=== PATIENT | female | born 1955 | race Caucasian/White ===

== ENCOUNTER → 2023-10-02 | Outpatient (CLI) | payer MEDICARE, SELFPAY ==
--- NOTE | 2023-10-02 14:10 | BI_ITS ---
MAMMOGRAPHY - BILATERAL SCREENING 3-D TOMOSYNTHESIS REASON FOR EXAM: Female, 68 years old. SCREENING PERTINENT HISTORY: No significant family history. TECHNIQUE: 2-D mammograms and 3-D Tomosynthesis of the breast (s) were performed. CAD was performed. COMPARISON: 02/11/2013 FINDINGS: The breast composition is heterogeneously dense that can obscure small breast masses. Scattered benign calcifications are seen. No dense spiculated masses or suspicious microcalcifications are identified. No architectural distortion is identified. There is no skin thickening or retraction. There has been no significant change since the prior study. BI/SCRN MAMM (CAD)W/PEYTON BILAT IMPRESSION: No mammographic signs of malignancy. Routine yearly mammograms recommended. ASSESSMENT CATEGORY: BIRADS Category 1: Negative. A letter regarding these results will be sent to the patient by the facility within 30 days. FOLLOW UP RECOMMENDATION: Yearly follow up mammogram recommended. (A) Approximately 10% of breast cancers are not detected by mammography. A normal mammogram should not delay biopsy of a clinically suspicious abnormality. Electronically Signed: Grayson Rothman MD at 18:28 EST ,
--- NOTE | 2023-10-02 14:12 | BD_ITS ---
STUDY: DUAL ENERGY X-RAY ABSORPTIOMETRY / DXA REASON FOR EXAM: Female, 68 years old. M81.0 TECHNIQUE: Bone Mineral Density (BMD) measurements of lumbar spine and bilateral hips were obtained. COMPARISON: Comparison is made with prior study dated February 11, 2013. FINDINGS: Lumbar Spine (L1-L4): g/cm2 (0.798) / T-score (-2.0) / Z-score (-0.2) Findings are suggestive of osteopenia with a moderate fracture risk. Left Femur Total: g/cm2 (0.891) / T-score (-0.4) / Z-score (0.9) Left Femoral Neck: g/cm2 (0.786) / T-score (-0.6) / Z-score (1.0) Right Femur Total: g/cm2 (0.896) / T-score (-0.4) / Z-score (0.9) Right Femoral Neck: g/cm2 (0.814) / T-score (-0.3) / Z-score (1.2) The T-Scores on the most recent prior examination were: Lumbar Spine (L1-L4): There has been worsening of bone density since the previous examination. Left Femur Total: which represents a worsening of 14.2%. Right Femur Total: which represents a worsening of 14.8%. BD/Dexa Bone Density Study IMPRESSION: The patient is considered osteopenic as outlined below according to World [place] Organization (WHO) criteria with a moderate fracture risk. There has been worsening of bone density since the previous examination. Reference Information: The T-score is the number of standard deviations above or below the standard which is normal for young adults at their peak bone mineral density. The World Health Organization (WHO) interprets the T-scores as follows: Above -1 Normal bone density Between -1 and -2.5 Osteopenia Equal to / or below -2.5 Osteoporosis As a practical clinical guideline, osteopenia may be graded as follows: Mild -1 through -1.5 Moderate -1.6 through -2.0 Severe -2.1 through -2.4 The Z-score is the number of standard deviations above or below age-matched controls. A Z-score of less than -1.5 would be considered abnormal. References: 1. NIH Osteoporosis and Related Bone Diseases www osteo.org 2. International Society for Clinical Densitometry www iscd.org 3. National Osteoporosis Foundation www nof.org Electronically Signed: Valerio Avila MD at 15:03 EDT ,
--- OUTSIDE RECORDS SUMMARY | 2023-10-02 19:11 | XMS RPT_ITS | CCD ---
Author Name Unknown Address [id number] [place] [address] Organization [facility] Care Team Providers Care Mill Control Operator Name Role Phone Nisha Pathak Unavailable Cristal Deleon Unavailable Unavailable Unavailable Unavailable Nisha Pathak Unavailable Leia Morales Unavailable Unavailable Unavailable Unavailable Maya Fisher Unavailable Unavailable Nisha Pathak DO Unavailable Maya Fihser LPN Unavailable Unavailable Unavailable Unavailable Leia Morales LPN Unavailable Unavailable Cicoreya CASE REPAIRER, Flor Unavailable Nisha Pathak DO Unavailable Gravius STUDY LEAD, Sarah Unavailable Unavailable Unavailable Unavailable Nisha Pathak DO Attending Unavailable Nisha Pathak DO Referring Unavailable Nisha Pathak DO Consulting Unavailable Marquesavinash HAYNES Missael Unavailable Unavailable Medications Completed/Discontinued Medications Medication Drug Class(es) Dates Sig (Normalized) Sig (Original) acyclovir 400 mg oral tablet (20 sources) Herpesvirus Nucleoside Analog DNA Polymerase Inhibitor, Herpes Simplex Virus Nucleoside Analog DNA Polymerase Inhibitor, Herpes Zoster Virus Nucleoside Analog DNA Polymerase Inhibitor Start: 08-14-2022 take 1 tablet by mouth once daily acyclovir 400 mg oral tablet 1 (one) Tablet qd for 0 days Quantity: 90 {Tablet} Refills: 3 Ordered: 14-Aug-2022 Nisha Pathak DO, DO, Kathleen Start : 14-Aug-2022 Active Problems Active Problems Problem Classification Problem Date Documented Da te Episodic/Chronic Diabetes mellitus without complication (20 sources) Hyperglycemia; Translations: [Hyperglycemia] 04-14-2021 Episodic Essential hypertension (20 sources) Hypertensive disorder; Translations: [Hypertension] 05-07-2018 Chronic Other nutritional; endocrine; and metabolic disorders (8 sources) Body mass index 25-29 - overweight; Translations: [BMI 28.0-28.9,adult] 03-28-2018 Chronic Other nutritional; endocrine; and metabolic disorders (20 sources) Body mass index 25-29 - overweight; Translations: [BMI 26.0-26.9,adult] 11-09-2020 Episodic Other nutritional; endocrine; and metabolic disorders (20 sources) Overweight in adulthood with body mass index of 25 or more but less than 30; Translations: [BMI 26.0-26.9,adult] 10-18-2021 Episodic Other screening for suspected conditions (not mental disorders or infectious disease) (20 sources) Patient encounter status; Translations: [Encounter for screening mammogram for breast cancer (Renamed from Encounter for screening mammogram for malignant neoplasm of breast)] 11-09-2020 Episodic Past or Other Problems Problem Classification Problem Date Documented Da te Episodic/Chronic Unclassified (18 sources) Encounter for screening mammogram for breast cancer (Renamed from Encounter for screening mammogram for malignant neoplasm of breast); Translations: [Patient encounter status] 03-28-2018 Unclassified (20 sources) Pregnancies (); Translations: [Pregnancies ()] 03-28-2018 Results Test Name Value Interpretation Reference Range Facil ity Vital Signs Date Time Vital Sign Value Performing Clinician Facility 01-31-2023 07:13-0400 Body height 163.83 cm [facility] Work Phone: 01-31-2023 07:13-0400 Body mass index (BMI) [Ratio] 27.23 kg/m2 [facility] Work Phone: 01-31-2023 07:13-0400 Body surface area Derived from formula 1.79 m2 [facility] Work Phone: 01-31-2023 07:13-0400 Body temperature 97.3 [degF] [facility]; [facility] Work Phone: 01-31-2023 07:130400 Body weight 73.09 kg Missael Mohan [facility] Work Phone: 01-31-2023 [id number]:[id number] Diastolic blood pressure 60 mm[Hg] Missael Mohan [facility] Work Phone: Encounters Encounter Date Encounter Type Care Provider Facility Start: 01-31-2023 End: 01-31-2023 Patient encounter procedure Nisha Zo DO Work Phone: [facility] Start: 10-17-2022 End: 10-17-2022 Office outpatient visit 10 minutes Nisha Zo DO Work Phone: [facility] Start: 10-17-2022 ambulatory Nisha Zo DO [facility] Start: 10-19-2021 End: 10-19-2021 Office outpatient visit 10 minutes Nisha Zo DO Work Phone: [facility] Start: 10-16-2021 End: 10-16-2021 Office outpatient visit 10 minutes Nisha Zo DO Work Phone: [facility] Start: 04-25-2021 End: 04-25-2021 Office outpatient visit 10 minutes Nisha Zo DO Work Phone: [facility] Start: 11-09-2020 End: 11-11-2020 Office outpatient visit 15 minutes Nisha Zo DO Work Phone: [facility] Start: 11-09-2020 Review Nisha Zo [facility] Start: 05-11-2020 End: 05-11-2020 Office outpatient visit 15 minutes Nisha Zo [facility] Start: 11-05-2019 End: 11-05-2019 Office outpatient visit 15 minutes Nisha Zo [facility] Start: 10-01-2018 End: 10-01-2018 Office outpatient visit 15 minutes Nisha Zo [facility] Start: 08-22-2018 End: 08-22-2018 Phone Encounter Nisha Zo [facility] Start: 05-07-2018 End: 05-07-2018 Phone Encounter Nisha Pathak [facility] Start: 03-28-2018 End: 03-28-2018 Office outpatient visit 25 minutes Nisha Pathak [facility] Procedures Date Procedure Procedure Detail Performing Clinician Start: 03-28-2018 End: 03-28-2018 No Known Past Surgical History [facility] Ophthalmic examinati on and evaluation Cristal Messenger Plan of Treatment Date Care Activity Detail Author Start: 01-31-2023 Procedure Education Eprescribed prescriptions (G8553) [facility] Work Phone: Start: 01-31-2023 Provider Instructions for Treatment [facility] Work Phone: Start: 01-31-2023 Hemoglobin glycosylated a1c HGB A1C (34810) [facility]; [facility] Work Phone: Start: 01-31-2023 Urnls dip stick/tablet reagent auto microscopy URINALYSIS, W/ MICRO (23208) [facility]; [facility] Work Phone: Start: 01-31-2023 Urine albumin quantitative MICROALBUMIN: CREATININE RATIO (28173) AND (11581) [facility]; [facility] Work Phone: Start: 01-31-2023 Comprehensive metabolic panel METABOLIC PANEL, COMPREHENSIVE (35446) [facility]; [facility] Work Phone: Start: 01-31-2023 Lipid panel LIPID PANEL (26907) [facility] Work Phone: Start: 01-31-2023 Blood count manual cell count each CBC with auto diff (31492) [facility]; [facility] Work Phone: Start: 10-17-2022 Procedure Education Eprescribed prescriptions (G8553) [facility]; [facility] Work Phone: Start: 10-19-2021 Procedure Education Eprescribed prescriptions (G8553) [facility] Work Phone: Start: 10-16-2021 Procedure Education Eprescribed prescriptions (G8553) [facility]; [facility] Work Phone: Start: 04-25-2021 Procedure Education Eprescribed prescriptions (G8553) [facility]; [facility] Work Phone: Start: 11-09-2020 Procedure Education Eprescribed prescriptions (G8553) [facility]; [facility] Work Phone: Start: 11-09-2020 Provider Instructions for Treatment [facility] Work Phone: Start: 11-09-2020 Hemoglobin glycosylated a1c HGB A1C (63580) [facility]; [facility] Work Phone: Start: 05-11-2020 Urnls dip stick/tablet reagent auto microscopy URINALYSIS, W/ MICRO (52312) [facility] Work Phone: Start: 05-11-2020 Urine albumin quantitative MICROALBUMIN: CREATININE RATIO (68643) AND (48751) [facility] Work Phone: Start: 05-11-2020 Comprehensive metabolic panel METABOLIC PANEL, COMPREHENSIVE (55412) [facility] Work Phone: Start: 05-11-2020 Lipid panel LIPID PANEL (03825) [facility] Work Phone: Start: 05-11-2020 Blood count complete auto&auto difrntl wbc CBC W/AUTO DIFF WBC (70644) [facility] Work Phone: Start: 05-11-2020 Procedure Education Eprescribed prescriptions (G8553) [facility] Work Phone: Start: 05-11-2020 Provider Instructions for Treatment [facility] Work Phone: Start: 11-05-2019 Procedure Education Eprescribed prescriptions (G8553) [facility] Work Phone: Start: 11-05-2019 Provider Instructions for Treatment [facility] Work Phone: Start: 10-01-2018 Provider Instructions for Treatment [facility] Work Phone: Start: 10-01-2018 Protein mass conc NMR Profile (57365) [facility] Work Phone: Start: 10-01-2018 Urnls dip stick/tablet reagent auto microscopy URINALYSIS, W/ MICRO (89202) [facility] Work Phone: Start: 10-01-2018 Urine albumin quantitative MICROALBUMIN: CREATININE RATIO (08122) AND (12279) [facility] Work Phone: Start: 10-01-2018 Comprehensive metabolic panel METABOLIC PANEL, COMPREHENSIVE (18026) [facility] Work Phone: Start: 10-01-2018 Blood count complete auto&auto difrntl wbc CBC W/AUTO DIFF WBC (62665) [facility] Work Phone: Start: 03-28-2018 Provider Instructions for Treatment [facility] Work Phone: [facility] Work Phone: [facility] Work Phone: [facility] Work Phone: [facility] Work Phone: [facility] Work Phone: Immunizations Immunization Date Immunization Notes Care Provider Piedad jenkins 07-29-2019 influenza, seasonal, injectable Nisha Pathak [facility] Work Phone: 07-29-2012 zoster vaccine, live Nisha Pathak [facility] Work Phone: Payers Date Payer Category Payer Unknown [id number] 2018 Unknown [id number] 1955 Unknown [id number] Unknown Social History Date Type Detail Facility Caffeine Use [facility] Work Phone: Functional Status Date Assessment Result Facility 10-01-2018 LP-IR Score LP-IR Score <25 [facility] Work Phone: Clinical Notes Note Date & Type Note Facility [facility] Work Phone: [phone]* Name Dates Details How to Access Health Informa tion Online using Patient Portal and 3rd Libertarian Apps Indication:Non-smoker Start:09-Nov-2020 Instruction Type:Patient Education Patient Instructions Indication:Non-smoker Start:09-Nov-2020 Instruction Type:Provider Instructions for Treatment How to access health informa tion online Indication:BMI 26.0-26.9,adult Start:11-May-2020 Instruction Type:Patient Education How to access health informa tion online - Detail Indication:BMI 26.0-26.9,adult Start:11-May-2020 Instruction Type:Patient Education Patient Instructions Indication:BMI 26.0-26.9,adult Start:11-May-2020 Instruction Type:Provider Instructions for Treatment How to access health informa tion online - Detail Indication:Non-smoker Start:05-Nov-2019 Instruction Type:Patient Education How to access health informa tion online Indication:Non-smoker Start:05-Nov-2019 Instruction Type:Patient Education Patient Instructions Indication:Non-smoker Start:05-Nov-2019 Instruction Type:Provider Instructions for Treatment How to access health informa tion online Indication:BMI 26.0-26.9,adult Start:01-Oct-2018 Instruction Type:Patient Education Patient Instructions Indication:BMI 26.0-26.9,adult Start:01-Oct-2018 Instruction Type:Provider Instructions for Treatment How to access health informa tion online Indication:Non-smoker Start:28-Mar-2018 Instruction Type:Patient Education How to access health informa tion online - Detail Indication:Non-smoker Start:28-Mar-2018 Instruction Type:Patient Education Patient Instructions Indication:Non-smoker Start:28-Mar-2018 Instruction Type:Provider Instructions for Treatment [facility]; [facility] Work Phone: Instructions* Name Dates Details Patient Instructions Indication:BMI 28.0-28.9,adult Start:25-Apr-2021 Instruction Type:Provider Instructions for Treatment How to Access Health Informa tion Online using Patient Portal and 3rd Libertarian Apps Indication:BMI 28.0-28.9,adult Start:25-Apr-2021 Instruction Type:Patient Education How to Access Health Informa tion Online using Patient Portal and 3rd Libertarian Apps Indication:Non-smoker Start:09-Nov-2020 Instruction Type:Patient Education Patient Instructions Indication:Non-smoker Start:09-Nov-2020 Instruction Type:Provider Instructions for Treatment How to access health informa tion online Indication:BMI 26.0-26.9,adult Start:11-May-2020 Instruction Type:Patient Education How to access health informa tion online - Detail Indication:BMI 26.0-26.9,adult Start:11-May-2020 Instruction Type:Patient Education Patient Instructions Indication:BMI 26.0-26.9,adult Start:11-May-2020 Instruction Type:Provider Instructions for Treatment How to access health informa tion online - Detail Indication:Non-smoker Start:05-Nov-2019 Instruction Type:Patient Education How to access health informa tion online Indication:Non-smoker Start:05-Nov-2019 Instruction Type:Patient Education Patient Instructions Indication:Non-smoker Start:05-Nov-2019 Instruction Type:Provider Instructions for Treatment How to access health informa tion online Indication:BMI 26.0-26.9,adult Start:01-Oct-2018 Instruction Type:Patient Education Patient Instructions Indication:BMI 26.0-26.9,adult Start:01-Oct-2018 Instruction Type:Provider Instructions for Treatment How to access health informa tion online Indication:Non-smoker Start:28-Mar-2018 Instruction Type:Patient Education How to access health informa tion online - Detail Indication:Non-smoker Start:28-Mar-2018 Instruction Type:Patient Education Patient Instructions Indication:Non-smoker Start:28-Mar-2018 Instruction Type:Provider Instructions for Treatment [facility] Work Phone: Instructions* Name Dates Details Patient Instructions Indication:BMI 28.0-28.9,adult Start:25-Apr-2021 Instruction Type:Provider Instructions for Treatment How to Access Health Informa tion Online using Patient Portal and 3rd Libertarian Apps Indication:BMI 28.0-28.9,adult Start:25-Apr-2021 Instruction Type:Patient Education How to Access Health Informa tion Online using Patient Portal and 3rd Libertarian Apps Indication:Non-smoker Start:09-Nov-2020 Instruction Type:Patient Education Patient Instructions Indication:Non-smoker Start:09-Nov-2020 Instruction Type:Provider Instructions for Treatment How to access health informa tion online Indication:BMI 26.0-26.9,adult Start:11-May-2020 Instruction Type:Patient Education How to access health informa tion online - Detail Indication:BMI 26.0-26.9,adult Start:11-May-2020 Instruction Type:Patient Education Patient Instructions Indication:BMI 26.0-26.9,adult Start:11-May-2020 Instruction Type:Provider Instructions for Treatment How to access health informa tion online - Detail Indication:Non-smoker Start:05-Nov-2019 Instruction Type:Patient Education How to access health informa tion online Indication:Non-smoker Start:05-Nov-2019 Instruction Type:Patient Education Patient Instructions Indication:Non-smoker Start:05-Nov-2019 Instruction Type:Provider Instructions for Treatment How to access health informa tion online Indication:BMI 26.0-26.9,adult Start:01-Oct-2018 Instruction Type:Patient Education Patient Instructions Indication:BMI 26.0-26.9,adult Start:01-Oct-2018 Instruction Type:Provider Instructions for Treatment How to access health informa tion online Indication:Non-smoker Start:28-Mar-2018 Instruction Type:Patient Education How to access health informa tion online - Detail Indication:Non-smoker Start:28-Mar-2018 Instruction Type:Patient Education Patient Instructions Indication:Non-smoker Start:28-Mar-2018 Instruction Type:Provider Instructions for Treatment [facility]; [facility] Work Phone: Instructions* Name Dates Details How to Access Health Informa tion Online using Patient Portal and 3rd Libertarian Apps Indication:Skin lesion Start:19-Oct-2021 Instruction Type:Patient Education Patient Instructions Indication:Skin lesion Start:19-Oct-2021 Instruction Type:Provider Instructions for Treatment Patient Instructions Indication:Non-smoker Start:16-Oct-2021 Instruction Type:Provider Instructions for Treatment How to Access Health Informa tion Online using Patient Portal and [employer] Libertarian Apps Indication:Non-smoker Start:16-Oct-2021 Instruction Type:Patient Education Patient Instructions Indication:BMI 28.0-28.9,adult Start:25-Apr-2021 Instruction Type:Provider Instructions for Treatment How to Access Health Informa tion Online using Patient Portal and 3rd Libertarian Apps Indication:BMI 28.0-28.9,adult Start:25-Apr-2021 Instruction Type:Patient Education How to Access Health Informa tion Online using Patient Portal and 3rd Libertarian Apps Indication:Non-smoker Start:09-Nov-2020 Instruction Type:Patient Education Patient Instructions Indication:Non-smoker Start:09-Nov-2020 Instruction Type:Provider Instructions for Treatment How to access health informa tion online Indication:BMI 26.0-26.9,adult Start:11-May-2020 Instruction Type:Patient Education How to access health informa tion online - Detail Indication:BMI 26.0-26.9,adult Start:11-May-2020 Instruction Type:Patient Education Patient Instructions Indication:BMI 26.0-26.9,adult Start:11-May-2020 Instruction Type:Provider Instructions for Treatment How to access health informa tion online - Detail Indication:Non-smoker Start:05-Nov-2019 Instruction Type:Patient Education How to access health informa tion online Indication:Non-smoker Start:05-Nov-2019 Instruction Type:Patient Education Patient Instructions Indication:Non-smoker Start:05-Nov-2019 Instruction Type:Provider Instructions for Treatment How to access health informa tion online Indication:BMI 26.0-26.9,adult Start:01-Oct-2018 Instruction Type:Patient Education Patient Instructions Indication:BMI 26.0-26.9,adult Start:01-Oct-2018 Instruction Type:Provider Instructions for Treatment How to access health informa tion online Indication:Non-smoker Start:28-Mar-2018 Instruction Type:Patient Education How to access health informa tion online - Detail Indication:Non-smoker Start:28-Mar-2018 Instruction Type:Patient Education Patient Instructions Indication:Non-smoker Start:28-Mar-2018 Instruction Type:Provider Instructions for Treatment [facility] Work Phone: Instructions* Name Dates Details How to Access Health Informa tion Online using Patient Portal and 3rd Libertarian Apps Indication:Skin lesion Start:19-Oct-2021 Instruction Type:Patient Education Patient Instructions Indication:Skin lesion Start:19-Oct-2021 Instruction Type:Provider Instructions for Treatment Patient Instructions Indication:Non-smoker Start:16-Oct-2021 Instruction Type:Provider Instructions for Treatment How to Access Health Informa tion Online using Patient Portal and 3rd Libertarian Apps Indication:Non-smoker Start:16-Oct-2021 Instruction Type:Patient Education Patient Instructions Indication:BMI 28.0-28.9,adult Start:25-Apr-2021 Instruction Type:Provider Instructions for Treatment How to Access Health Informa tion Online using Patient Portal and 3rd Libertarian Apps Indication:BMI 28.0-28.9,adult Start:25-Apr-2021 Instruction Type:Patient Education How to Access Health Informa tion Online using Patient Portal and 3rd Libertarian Apps Indication:Non-smoker Start:09-Nov-2020 Instruction Type:Patient Education Patient Instructions Indication:Non-smoker Start:09-Nov-2020 Instruction Type:Provider Instructions for Treatment How to access health informa tion online Indication:BMI 26.0-26.9,adult Start:11-May-2020 Instruction Type:Patient Education How to access health informa tion online - Detail Indication:BMI 26.0-26.9,adult Start:11-May-2020 Instruction Type:Patient Education Patient Instructions Indication:BMI 26.0-26.9,adult Start:11-May-2020 Instruction Type:Provider Instructions for Treatment How to access health informa tion online - Detail Indication:Non-smoker Start:05-Nov-2019 Instruction Type:Patient Education How to access health informa tion online Indication:Non-smoker Start:05-Nov-2019 Instruction Type:Patient Education Patient Instructions Indication:Non-smoker Start:05-Nov-2019 Instruction Type:Provider Instructions for Treatment How to access health informa tion online Indication:BMI 26.0-26.9,adult Start:01-Oct-2018 Instruction Type:Patient Education Patient Instructions Indication:BMI 26.0-26.9,adult Start:01-Oct-2018 Instruction Type:Provider Instructions for Treatment How to access health informa tion online Indication:Non-smoker Start:28-Mar-2018 Instruction Type:Patient Education How to access health informa tion online - Detail Indication:Non-smoker Start:28-Mar-2018 Instruction Type:Patient Education Patient Instructions Indication:Non-smoker Start:28-Mar-2018 Instruction Type:Provider Instructions for Treatment [facility]; [facility] Work Phone: Instructions* Name Dates Details How to Access Health Informa tion Online using Patient Portal and 3rd Libertarian Apps Indication:Skin lesion Start:19-Oct-2021 Instruction Type:Patient Education Patient Instructions Indication:Skin lesion Start:19-Oct-2021 Instruction Type:Provider Instructions for Treatment Patient Instructions Indication:Non-smoker Start:16-Oct-2021 Instruction Type:Provider Instructions for Treatment How to Access Health Informa tion Online using Patient Portal and 3rd Libertarian Apps Indication:Non-smoker Start:16-Oct-2021 Instruction Type:Patient Education Patient Instructions Indication:BMI 28.0-28.9,adult Start:25-Apr-2021 Instruction Type:Provider Instructions for Treatment How to Access Health Informa tion Online using Patient Portal and 3rd Libertarian Apps Indication:BMI 28.0-28.9,adult Start:25-Apr-2021 Instruction Type:Patient Education How to Access Health Informa tion Online using Patient Portal and 3rd Libertarian Apps Indication:Non-smoker Start:09-Nov-2020 Instruction Type:Patient Education Patient Instructions Indication:Non-smoker Start:09-Nov-2020 Instruction Type:Provider Instructions for Treatment How to access health informa tion online Indication:BMI 26.0-26.9,adult Start:11-May-2020 Instruction Type:Patient Education How to access health informa tion online - Detail Indication:BMI 26.0-26.9,adult Start:11-May-2020 Instruction Type:Patient Education Patient Instructions Indication:BMI 26.0-26.9,adult Start:11-May-2020 Instruction Type:Provider Instructions for Treatment How to access health informa tion online - Detail Indication:Non-smoker Start:05-Nov-2019 Instruction Type:Patient Education How to access health informa tion online Indication:Non-smoker Start:05-Nov-2019 Instruction Type:Patient Education Patient Instructions Indication:Non-smoker Start:05-Nov-2019 Instruction Type:Provider Instructions for Treatment How to access health informa tion online Indication:BMI 26.0-26.9,adult Start:01-Oct-2018 Instruction Type:Patient Education Patient Instructions Indication:BMI 26.0-26.9,adult Start:01-Oct-2018 Instruction Type:Provider Instructions for Treatment How to access health informa tion online Indication:Non-smoker Start:28-Mar-2018 Instruction Type:Patient Education How to access health informa tion online - Detail Indication:Non-smoker Start:28-Mar-2018 Instruction Type:Patient Education Patient Instructions Indication:Non-smoker Start:28-Mar-2018 Instruction Type:Provider Instructions for Treatment [facility]; [facility] Work Phone: Instructions* Name Dates Details How to Access Health Informa tion Online using Patient Portal and [employer]rd [employer] Apps Indication:Skin lesion Start:19-Oct-2021 Instruction Type:Patient Education Patient Instructions Indication:Skin lesion Start:19-Oct-2021 Instruction Type:Provider Instructions for Treatment Patient Instructions Indication:Non-smoker Start:16-Oct-2021 Instruction Type:Provider Instructions for Treatment How to Access Health Informa tion Online using Patient Portal and [employer]rd [employer] Apps Indication:Non-smoker Start:16-Oct-2021 Instruction Type:Patient Education Patient Instructions Indication:BMI 28.0-28.9,adult Start:25-Apr-2021 Instruction Type:Provider Instructions for Treatment How to Access Health Informa tion Online using Patient Portal and [employer]rd [employer] Apps Indication:BMI 28.0-28.9,adult Start:25-Apr-2021 Instruction Type:Patient Education How to Access Health Informa tion Online using Patient Portal and [employer]rd [employer] Apps Indication:Non-smoker Start:09-Nov-2020 Instruction Type:Patient Education Patient Instructions Indication:Non-smoker Start:09-Nov-2020 Instruction Type:Provider Instructions for Treatment How to access health informa tion online Indication:BMI 26.0-26.9,adult Start:11-May-2020 Instruction Type:Patient Education How to access health informa tion online - Detail Indication:BMI 26.0-26.9,adult Start:11-May-2020 Instruction Type:Patient Education Patient Instructions Indication:BMI 26.0-26.9,adult Start:11-May-2020 Instruction Type:Provider Instructions for Treatment How to access health informa tion online - Detail Indication:Non-smoker Start:05-Nov-2019 Instruction Type:Patient Education How to access health informa tion online Indication:Non-smoker Start:05-Nov-2019 Instruction Type:Patient Education Patient Instructions Indication:Non-smoker Start:05-Nov-2019 Instruction Type:Provider Instructions for Treatment How to access health informa tion online Indication:BMI 26.0-26.9,adult Start:01-Oct-2018 Instruction Type:Patient Education Patient Instructions Indication:BMI 26.0-26.9,adult Start:01-Oct-2018 Instruction Type:Provider Instructions for Treatment How to access health informa tion online Indication:Non-smoker Start:28-Mar-2018 Instruction Type:Patient Education How to access health informa tion online - Detail Indication:Non-smoker Start:28-Mar-2018 Instruction Type:Patient Education Patient Instructions Indication:Non-smoker Start:28-Mar-2018 Instruction Type:Provider Instructions for Treatment [facility]; [facility] Work Phone: Instructions* Name Dates Details How to Access Health Informa tion Online using Patient Portal and [employer]rd [employer] Apps Indication:Skin lesion Start:19-Oct-2021 Instruction Type:Patient Education Patient Instructions Indication:Skin lesion Start:19-Oct-2021 Instruction Type:Provider Instructions for Treatment Patient Instructions Indication:Non-smoker Start:16-Oct-2021 Instruction Type:Provider Instructions for Treatment How to Access Health Informa tion Online using Patient Portal and [employer] Apps Indication:Non-smoker Start:16-Oct-2021 Instruction Type:Patient Education Patient Instructions Indication:BMI 28.0-28.9,adult Start:25-Apr-2021 Instruction Type:Provider Instructions for Treatment How to Access Health Informa tion Online using Patient Portal and [employer] Apps Indication:BMI 28.0-28.9,adult Start:25-Apr-2021 Instruction Type:Patient Education How to Access Health Informa tion Online using Patient Portal and [employer] Apps Indication:Non-smoker Start:09-Nov-2020 Instruction Type:Patient Education Patient Instructions Indication:Non-smoker Start:09-Nov-2020 Instruction Type:Provider Instructions for Treatment How to access health informa tion online Indication:BMI 26.0-26.9,adult Start:11-May-2020 Instruction Type:Patient Education How to access health informa tion online - Detail Indication:BMI 26.0-26.9,adult Start:11-May-2020 Instruction Type:Patient Education Patient Instructions Indication:BMI 26.0-26.9,adult Start:11-May-2020 Instruction Type:Provider Instructions for Treatment How to access health informa tion online - Detail Indication:Non-smoker Start:05-Nov-2019 Instruction Type:Patient Education How to access health informa tion online Indication:Non-smoker Start:05-Nov-2019 Instruction Type:Patient Education Patient Instructions Indication:Non-smoker Start:05-Nov-2019 Instruction Type:Provider Instructions for Treatment How to access health informa tion online Indication:BMI 26.0-26.9,adult Start:01-Oct-2018 Instruction Type:Patient Education Patient Instructions Indication:BMI 26.0-26.9,adult Start:01-Oct-2018 Instruction Type:Provider Instructions for Treatment How to access health informa tion online Indication:Non-smoker Start:28-Mar-2018 Instruction Type:Patient Education How to access health informa tion online - Detail Indication:Non-smoker Start:28-Mar-2018 Instruction Type:Patient Education Patient Instructions Indication:Non-smoker Start:28-Mar-2018 Instruction Type:Provider Instructions for Treatment [facility]; [facility] Work Phone: Instructions* Name Dates Details How to Access Health Informa tion Online using Patient Portal and [employer] Apps Indication:Skin lesion Start:19-Oct-2021 Instruction Type:Patient Education Patient Instructions Indication:Skin lesion Start:19-Oct-2021 Instruction Type:Provider Instructions for Treatment Patient Instructions Indication:Non-smoker Start:16-Oct-2021 Instruction Type:Provider Instructions for Treatment How to Access Health Informa tion Online using Patient Portal and [employer] Apps Indication:Non-smoker Start:16-Oct-2021 Instruction Type:Patient Education Patient Instructions Indication:BMI 28.0-28.9,adult Start:25-Apr-2021 Instruction Type:Provider Instructions for Treatment How to Access Health Informa tion Online using Patient Portal and [employer] Apps Indication:BMI 28.0-28.9,adult Start:25-Apr-2021 Instruction Type:Patient Education How to Access Health Informa tion Online using Patient Portal and [employer] Apps Indication:Non-smoker Start:09-Nov-2020 Instruction Type:Patient Education Patient Instructions Indication:Non-smoker Start:09-Nov-2020 Instruction Type:Provider Instructions for Treatment How to access health informa tion online Indication:BMI 26.0-26.9,adult Start:11-May-2020 Instruction Type:Patient Education How to access health informa tion online - Detail Indication:BMI 26.0-26.9,adult Start:11-May-2020 Instruction Type:Patient Education Patient Instructions Indication:BMI 26.0-26.9,adult Start:11-May-2020 Instruction Type:Provider Instructions for Treatment How to access health informa tion online - Detail Indication:Non-smoker Start:05-Nov-2019 Instruction Type:Patient Education How to access health informa tion online Indication:Non-smoker Start:05-Nov-2019 Instruction Type:Patient Education Patient Instructions Indication:Non-smoker Start:05-Nov-2019 Instruction Type:Provider Instructions for Treatment How to access health informa tion online Indication:BMI 26.0-26.9,adult Start:01-Oct-2018 Instruction Type:Patient Education Patient Instructions Indication:BMI 26.0-26.9,adult Start:01-Oct-2018 Instruction Type:Provider Instructions for Treatment How to access health informa tion online Indication:Non-smoker Start:28-Mar-2018 Instruction Type:Patient Education How to access health informa tion online - Detail Indication:Non-smoker Start:28-Mar-2018 Instruction Type:Patient Education Patient Instructions Indication:Non-smoker Start:28-Mar-2018 Instruction Type:Provider Instructions for Treatment [facility]; [facility] Work Phone: Instructions* Name Dates Details How to Access Health Informa tion Online using Patient Portal and [employer] Apps Indication:Skin lesion Start:19-Oct-2021 Instruction Type:Patient Education Patient Instructions Indication:Skin lesion Start:19-Oct-2021 Instruction Type:Provider Instructions for Treatment Patient Instructions Indication:Non-smoker Start:16-Oct-2021 Instruction Type:Provider Instructions for Treatment How to Access Health Informa tion Online using Patient Portal and [employer] Apps Indication:Non-smoker Start:16-Oct-2021 Instruction Type:Patient Education Patient Instructions Indication:BMI 28.0-28.9,adult Start:25-Apr-2021 Instruction Type:Provider Instructions for Treatment How to Access Health Informa tion Online using Patient Portal and [employer] Apps Indication:BMI 28.0-28.9,adult Start:25-Apr-2021 Instruction Type:Patient Education How to Access Health Informa tion Online using Patient Portal and [employer] Apps Indication:Non-smoker Start:09-Nov-2020 Instruction Type:Patient Education Patient Instructions Indication:Non-smoker Start:09-Nov-2020 Instruction Type:Provider Instructions for Treatment How to access health informa tion online Indication:BMI 26.0-26.9,adult Start:11-May-2020 Instruction Type:Patient Education How to access health informa tion online - Detail Indication:BMI 26.0-26.9,adult Start:11-May-2020 Instruction Type:Patient Education Patient Instructions Indication:BMI 26.0-26.9,adult Start:11-May-2020 Instruction Type:Provider Instructions for Treatment How to access health informa tion online - Detail Indication:Non-smoker Start:05-Nov-2019 Instruction Type:Patient Education How to access health informa tion online Indication:Non-smoker Start:05-Nov-2019 Instruction Type:Patient Education Patient Instructions Indication:Non-smoker Start:05-Nov-2019 Instruction Type:Provider Instructions for Treatment How to access health informa tion online Indication:BMI 26.0-26.9,adult Start:01-Oct-2018 Instruction Type:Patient Education Patient Instructions Indication:BMI 26.0-26.9,adult Start:01-Oct-2018 Instruction Type:Provider Instructions for Treatment How to access health informa tion online Indication:Non-smoker Start:28-Mar-2018 Instruction Type:Patient Education How to access health informa tion online - Detail Indication:Non-smoker Start:28-Mar-2018 Instruction Type:Patient Education Patient Instructions Indication:Non-smoker Start:28-Mar-2018 Instruction Type:Provider Instructions for Treatment [facility]; [facility] Work Phone: Instructions* Name Dates Details Patient Instructions Indication:BMI 28.0-28.9,adult Start:17-Oct-2022 Instruction Type:Provider Instructions for Treatment How to Access Health Informa tion Online using Patient Portal and [employer] Apps Indication:BMI 28.0-28.9,adult Start:17-Oct-2022 Instruction Type:Patient Education How to Access Health Informa tion Online using Patient Portal and [employer] Apps Indication:Skin lesion Start:19-Oct-2021 Instruction Type:Patient Education Patient Instructions Indication:Skin lesion Start:19-Oct-2021 Instruction Type:Provider Instructions for Treatment Patient Instructions Indication:Non-smoker Start:16-Oct-2021 Instruction Type:Provider Instructions for Treatment How to Access Health Informa tion Online using Patient Portal and [employer] Apps Indication:Non-smoker Start:16-Oct-2021 Instruction Type:Patient Education Patient Instructions Indication:BMI 28.0-28.9,adult Start:25-Apr-2021 Instruction Type:Provider Instructions for Treatment How to Access Health Informa tion Online using Patient Portal and [employer] Apps Indication:BMI 28.0-28.9,adult Start:25-Apr-2021 Instruction Type:Patient Education How to Access Health Informa tion Online using Patient Portal and [employer] Apps Indication:Non-smoker Start:09-Nov-2020 Instruction Type:Patient Education Patient Instructions Indication:Non-smoker Start:09-Nov-2020 Instruction Type:Provider Instructions for Treatment How to access health informa tion online Indication:BMI 26.0-26.9,adult Start:11-May-2020 Instruction Type:Patient Education How to access health informa tion online - Detail Indication:BMI 26.0-26.9,adult Start:11-May-2020 Instruction Type:Patient Education Patient Instructions Indication:BMI 26.0-26.9,adult Start:11-May-2020 Instruction Type:Provider Instructions for Treatment How to access health informa tion online - Detail Indication:Non-smoker Start:05-Nov-2019 Instruction Type:Patient Education How to access health informa tion online Indication:Non-smoker Start:05-Nov-2019 Instruction Type:Patient Education Patient Instructions Indication:Non-smoker Start:05-Nov-2019 Instruction Type:Provider Instructions for Treatment How to access health informa tion online Indication:BMI 26.0-26.9,adult Start:01-Oct-2018 Instruction Type:Patient Education Patient Instructions Indication:BMI 26.0-26.9,adult Start:01-Oct-2018 Instruction Type:Provider Instructions for Treatment How to access health informa tion online Indication:Non-smoker Start:28-Mar-2018 Instruction Type:Patient Education How to access health informa tion online - Detail Indication:Non-smoker Start:28-Mar-2018 Instruction Type:Patient Education Patient Instructions Indication:Non-smoker Start:28-Mar-2018 Instruction Type:Provider Instructions for Treatment [facility]; [facility] Work Phone: Instructions* Name Dates Details How to Access Health Informa tion Online using Patient Portal and [employer] Apps Indication:Non-smoker Start:31-Jan-2023 Instruction Type:Patient Education Patient Instructions Indication:Non-smoker Start:31-Jan-2023 Instruction Type:Provider Instructions for Treatment Patient Instructions Indication:BMI 28.0-28.9,adult Start:17-Oct-2022 Instruction Type:Provider Instructions for Treatment How to Access Health Informa tion Online using Patient Portal and [employer] Apps Indication:BMI 28.0-28.9,adult Start:17-Oct-2022 Instruction Type:Patient Education How to Access Health Informa tion Online using Patient Portal and [employer] Apps Indication:Skin lesion Start:19-Oct-2021 Instruction Type:Patient Education Patient Instructions Indication:Skin lesion Start:19-Oct-2021 Instruction Type:Provider Instructions for Treatment Patient Instructions Indication:Non-smoker Start:16-Oct-2021 Instruction Type:Provider Instructions for Treatment How to Access Health Informa tion Online using Patient Portal and [employer] Apps Indication:Non-smoker Start:16-Oct-2021 Instruction Type:Patient Education Patient Instructions Indication:BMI 28.0-28.9,adult Start:25-Apr-2021 Instruction Type:Provider Instructions for Treatment How to Access Health Informa tion Online using Patient Portal and [employer] Apps Indication:BMI 28.0-28.9,adult Start:25-Apr-2021 Instruction Type:Patient Education How to Access Health Informa tion Online using Patient Portal and [employer] Apps Indication:Non-smoker Start:09-Nov-2020 Instruction Type:Patient Education Patient Instructions Indication:Non-smoker Start:09-Nov-2020 Instruction Type:Provider Instructions for Treatment How to access health informa tion online Indication:BMI 26.0-26.9,adult Start:11-May-2020 Instruction Type:Patient Education How to access health informa tion online - Detail Indication:BMI 26.0-26.9,adult Start:11-May-2020 Instruction Type:Patient Education Patient Instructions Indication:BMI 26.0-26.9,adult Start:11-May-2020 Instruction Type:Provider Instructions for Treatment How to access health informa tion online - Detail Indication:Non-smoker Start:05-Nov-2019 Instruction Type:Patient Education How to access health informa tion online Indication:Non-smoker Start:05-Nov-2019 Instruction Type:Patient Education Patient Instructions Indication:Non-smoker Start:05-Nov-2019 Instruction Type:Provider Instructions for Treatment How to access health informa tion online Indication:BMI 26.0-26.9,adult Start:01-Oct-2018 Instruction Type:Patient Education Patient Instructions Indication:BMI 26.0-26.9,adult Start:01-Oct-2018 Instruction Type:Provider Instructions for Treatment How to access health informa tion online Indication:Non-smoker Start:28-Mar-2018 Instruction Type:Patient Education How to access health informa tion online - Detail Indication:Non-smoker Start:28-Mar-2018 Instruction Type:Patient Education Patient Instructions Indication:Non-smoker Start:28-Mar-2018 Instruction Type:Provider Instructions for Treatment [facility]; [facility] Work Phone: Instructions* Name Dates Details How to Access Health Informa tion Online using Patient Portal and [employer] Apps Indication:Non-smoker Start:31-Jan-2023 Instruction Type:Patient Education Patient Instructions Indication:Non-smoker Start:31-Jan-2023 Instruction Type:Provider Instructions for Treatment Patient Instructions Indication:BMI 28.0-28.9,adult Start:17-Oct-2022 Instruction Type:Provider Instructions for Treatment How to Access Health Informa tion Online using Patient Portal and [employer] Apps Indication:BMI 28.0-28.9,adult Start:17-Oct-2022 Instruction Type:Patient Education How to Access Health Informa tion Online using Patient Portal and [employer] Apps Indication:Skin lesion Start:19-Oct-2021 Instruction Type:Patient Education Patient Instructions Indication:Skin lesion Start:19-Oct-2021 Instruction Type:Provider Instructions for Treatment Patient Instructions Indication:Non-smoker Start:16-Oct-2021 Instruction Type:Provider Instructions for Treatment How to Access Health Informa tion Online using Patient Portal and [employer] Apps Indication:Non-smoker Start:16-Oct-2021 Instruction Type:Patient Education Patient Instructions Indication:BMI 28.0-28.9,adult Start:25-Apr-2021 Instruction Type:Provider Instructions for Treatment How to Access Health Informa tion Online using Patient Portal and [employer] Apps Indication:BMI 28.0-28.9,adult Start:25-Apr-2021 Instruction Type:Patient Education How to Access Health Informa tion Online using Patient Portal and [employer] Apps Indication:Non-smoker Start:09-Nov-2020 Instruction Type:Patient Education Patient Instructions Indication:Non-smoker Start:09-Nov-2020 Instruction Type:Provider Instructions for Treatment How to access health informa tion online Indication:BMI 26.0-26.9,adult Start:11-May-2020 Instruction Type:Patient Education How to access health informa tion online - Detail Indication:BMI 26.0-26.9,adult Start:11-May-2020 Instruction Type:Patient Education Patient Instructions Indication:BMI 26.0-26.9,adult Start:11-May-2020 Instruction Type:Provider Instructions for Treatment How to access health informa tion online - Detail Indication:Non-smoker Start:05-Nov-2019 Instruction Type:Patient Education How to access health informa tion online Indication:Non-smoker Start:05-Nov-2019 Instruction Type:Patient Education Patient Instructions Indication:Non-smoker Start:05-Nov-2019 Instruction Type:Provider Instructions for Treatment How to access health informa tion online Indication:BMI 26.0-26.9,adult Start:01-Oct-2018 Instruction Type:Patient Education Patient Instructions Indication:BMI 26.0-26.9,adult Start:01-Oct-2018 Instruction Type:Provider Instructions for Treatment How to access health informa tion online Indication:Non-smoker Start:28-Mar-2018 Instruction Type:Patient Education How to access health informa tion online - Detail Indication:Non-smoker Start:28-Mar-2018 Instruction Type:Patient Education Patient Instructions Indication:Non-smoker Start:28-Mar-2018 Instruction Type:Provider Instructions for Treatment [facility]; [facility] Work Phone: Family History Unknown Family Member Name Dates Details Heart Disease Comments:Father. Status:Active Hypertension Comments:Mother. Father. Status:Active Unknown Family Member Name Dates Details Heart Disease Comments:Father. Status:Active Hypertension Comments:Mother. Father. Status:Active Unknown Family Member Name Dates Details Heart Disease Comments:Father. Status:Active Hypertension Comments:Mother. Father. Status:Active Unknown Family Member Name Dates Details Heart Disease Comments:Father. Status:Active Hypertension Comments:Mother. Father. Status:Active Unknown Family Member Name Dates Details Heart Disease Comments:Father. Status:Active Hypertension Comments:Mother. Father. Status:Active Unknown Family Member Name Dates Details Heart Disease Comments:Father. Status:Active Hypertension Comments:Mother. Father. Status:Active Unknown Family Member Name Dates Details Heart Disease Comments:Father. Status:Active Hypertension Comments:Mother. Father. Status:Active Unknown Family Member Name Dates Details Heart Disease Comments:Father. Status:Active Hypertension Comments:Mother. Father. Status:Active Unknown Family Member Name Dates Details Heart Disease Comments:Father. Status:Active Hypertension Comments:Mother. Father. Status:Active Unknown Family Member Name Dates Details Heart Disease Comments:Father. Status:Active Hypertension Comments:Mother. Father. Status:Active Unknown Family Member Name Dates Details Heart Disease Comments:Father. Status:Active Hypertension Comments:Mother. Father. Status:Active Unknown Family Member Name Dates Details Heart Disease Comments:Father. Status:Active Hypertension Comments:Mother. Father. Status:Active Unknown Family Member Name Dates Details Heart Disease Comments:Father. Status:Active Hypertension Comments:Mother. Father. Status:Active Unknown Family Member Name Dates Details Heart Disease Comments:Father. Status:Active Hypertension Comments:Mother. Father. Status:Active Unknown Family Member Name Dates Details Heart Disease Comments:Father. Status:Active Hypertension Comments:Mother. Father. Status:Active Unknown Family Member Name Dates Details Heart Disease Comments:Father. Status:Active Hypertension Comments:Mother. Father. Status:Active Unknown Family Member Name Dates Details Heart Disease Comments:Father. Status:Active Hypertension Comments:Mother. Father. Status:Active Unknown Family Member Name Dates Details Heart Disease Comments:Father. Status:Active Hypertension Comments:Mother. Father. Status:Active Unknown Family Member Name Dates Details Heart Disease Comments:Father. Status:Active Hypertension Comments:Mother. Father. Status:Active Instructions Name Dates Details Non-smoker : How to access h ealth information online Indication:Non-smoker Non-smoker : How to access h ealth information online - Detail Indication:Non-smoker Non-smoker : Patient Instruc tions Indication:Non-smoker Name Dates Details Non-smoker : How to access h ealth information online Indication:Non-smoker Non-smoker : How to access h ealth information online - Detail Indication:Non-smoker Non-smoker : Patient Instruc tions Indication:Non-smoker Name Dates Details BMI 26.0-26.9,adult : How to access health information online Indication:BMI 26.0-26.9,adult BMI 26.0-26.9,adult : Patien t Instructions Indication:BMI 26.0-26.9,adult Non-smoker : How to access h ealth information online Indication:Non-smoker Non-smoker : How to access h ealth information online - Detail Indication:Non-smoker Non-smoker : Patient Instruc tions Indication:Non-smoker Name Dates Details How to access health informa tion online Indication:BMI 26.0-26.9,adult Start:11-May-2020 Instruction Type:Patient Education How to access health informa tion online - Detail Indication:BMI 26.0-26.9,adult Start:11-May-2020 Instruction Type:Patient Education Patient Instructions Indication:BMI 26.0-26.9,adult Start:11-May-2020 Instruction Type:Provider Instructions for Treatment How to access health informa tion online - Detail Indication:Non-smoker Start:05-Nov-2019 Instruction Type:Patient Education How to access health informa tion online Indication:Non-smoker Start:05-Nov-2019 Instruction Type:Patient Education Patient Instructions Indication:Non-smoker Start:05-Nov-2019 Instruction Type:Provider Instructions for Treatment How to access health informa tion online Indication:BMI 26.0-26.9,adult Start:01-Oct-2018 Instruction Type:Patient Education Patient Instructions Indication:BMI 26.0-26.9,adult Start:01-Oct-2018 Instruction Type:Provider Instructions for Treatment How to access health informa tion online Indication:Non-smoker Start:28-Mar-2018 Instruction Type:Patient Education How to access health informa tion online - Detail Indication:Non-smoker Start:28-Mar-2018 Instruction Type:Patient Education Patient Instructions Indication:Non-smoker Start:28-Mar-2018 Instruction Type:Provider Instructions for Treatment Name Dates Details How to Access Health Informa tion Online using Patient Portal and [employer]rd [employer] Apps Indication:Non-smoker Start:09-Nov-2020 Instruction Type:Patient Education Patient Instructions Indication:Non-smoker Start:09-Nov-2020 Instruction Type:Provider Instructions for Treatment How to access health informa tion online Indication:BMI 26.0-26.9,adult Start:11-May-2020 Instruction Type:Patient Education How to access health informa tion online - Detail Indication:BMI 26.0-26.9,adult Start:11-May-2020 Instruction Type:Patient Education Patient Instructions Indication:BMI 26.0-26.9,adult Start:11-May-2020 Instruction Type:Provider Instructions for Treatment How to access health informa tion online - Detail Indication:Non-smoker Start:05-Nov-2019 Instruction Type:Patient Education How to access health informa tion online Indication:Non-smoker Start:05-Nov-2019 Instruction Type:Patient Education Patient Instructions Indication:Non-smoker Start:05-Nov-2019 Instruction Type:Provider Instructions for Treatment How to access health informa tion online Indication:BMI 26.0-26.9,adult Start:01-Oct-2018 Instruction Type:Patient Education Patient Instructions Indication:BMI 26.0-26.9,adult Start:01-Oct-2018 Instruction Type:Provider Instructions for Treatment How to access health informa tion online Indication:Non-smoker Start:28-Mar-2018 Instruction Type:Patient Education How to access health informa tion online - Detail Indication:Non-smoker Start:28-Mar-2018 Instruction Type:Patient Education Patient Instructions Indication:Non-smoker Start:28-Mar-2018 Instruction Type:Provider Instructions for Treatment Advance Directives Name Dates Details Immunization Registry [place] - Effective on 03/28/2018. Expiration date unspecified Effective:28-Mar-2018 Name Dates Details Immunization Registry [place] - Effective on 03/28/2018. Expiration date unspecified Effective:28-Mar-2018 Name Dates Details Immunization Registry [place] - Effective on 03/28/2018. Expiration date unspecified Effective:28-Mar-2018 Name Dates Details Immunization Registry [place] - Effective on 03/28/2018. Expiration date unspecified Effective:28-Mar-2018 Name Dates Details Immunization Registry [place] - Effective on 03/28/2018. Expiration date unspecified Effective:28-Mar-2018 Name Dates Details Immunization Registry [place] - Effective on 03/28/2018. Expiration date unspecified Effective:28-Mar-2018 Name Dates Details Immunization Registry [place] - Effective on 03/28/2018. Expiration date unspecified Effective:28-Mar-2018 Name Dates Details Immunization Registry [place] - Effective on 03/28/2018. Expiration date unspecified Effective:28-Mar-2018 Name Dates Details Immunization Registry [place] - Effective on 03/28/2018. Expiration date unspecified Effective:28-Mar-2018 Name Dates Details Immunization Registry [place] - Effective on 03/28/2018. Expiration date unspecified Effective:28-Mar-2018 Name Dates Details Immunization Registry [place] - Effective on 03/28/2018. Expiration date unspecified Effective:28-Mar-2018 Name Dates Details Immunization Registry [place] - Effective on 03/28/2018. Expiration date unspecified Effective:28-Mar-2018 Name Dates Details Immunization Registry [place] - Effective on 03/28/2018. Expiration date unspecified Effective:28-Mar-2018 Name Dates Details Immunization Registry [place] - Effective on 03/28/2018. Expiration date unspecified Effective:28-Mar-2018 Name Dates Details Immunization Registry [place] - Effective on 03/28/2018. Expiration date unspecified Effective:28-Mar-2018 Name Dates Details Immunization Registry [place] - Effective on 03/28/2018. Expiration date unspecified Effective:28-Mar-2018 Name Dates Details Immunization Registry [place] - Effective on 03/28/2018. Expiration date unspecified Effective:28-Mar-2018 Summary Purpose Additional Source Comments INFORMATION SOURCE (unrecogn ized section and content) FOR RECORDS PERTAINING TO PATIENTS WHO ARE OR HAVE BEEN ENROLLED IN A CHEMICAL DEPENDENCY/SUBSTANCEABUSE PROGRAM, SOME INFORMATION MAY BE OMITTED. This clinical summary was aggregated from multiple sources. Caution should be exercised in using it in the provision of clinical care. This summary normalizes information from multiple sources, and as a consequence, information in this document may materially change the coding, format and clinical context of patient data. In addition, data may be omitted in some cases. CLINICAL DECISIONS SHOULD BE BASED ON THE PRIMARY CLINICAL RECORDS. [facility] [employer] provides no warranty or guarantee of the accuracy or completeness of information in this document.
== END | disposition home or self-care (01) ==
LOC: OPBD 14:07
PROVIDERS: PCP Internal Medicine; Referring Provider Internal Medicine; Visit Provider Internal Medicine
DX: Z12.31 Encounter for screening mammogram for malignant neoplasm of breast (principal); Z78.0 Asymptomatic menopausal state
CPT/HCPCS: 77063; 77067; 77080

== ENCOUNTER → 2024-09-25 | Outpatient (CLI) | payer MEDICARE, SELFPAY ==
[2024-09-25 12:41] LABS: ALB/GLOB Ratio 1.8 RATIO (0.9-2.4); AST(SGOT) 21 U/L (<=31); Alanine Aminotransfer ALT/SGPT 21 U/L (<=34); Albumin, Serum 4.3 g/dL (3.4-4.8); Alkaline Phosphatase 68 U/L (35-104); Anion Gap 10 (5-15); BUN 13 mg/dL (4-19); BUN/Creat Ratio 20.3 RATIO (10-20); Calcium 9.3 mg/dL (7.6-11.0); Carbon Dioxide 24.2 mmol/L (22.0-29.0); Chloride 101 mmol/L (96-108); Cholesterol 183 mg/dL (<=200); Creatinine, Serum 0.62 mg/dL (0.70-1.20); EST Glomerular Filtration Rate 97 (>60); Globulin 2.5 g/dL (2.2-4.2); Glucose 86 mg/dL (70-99); High Density Lipoprotein 76 mg/dL; Low Density Lipoprotein Calc. 92 mg/dL; Potassium 4.4 mmol/L (3.3-5.1); Protein, Total 6.8 g/dL (5.9-8.4); Sodium Level 135 mmol/L (133-145); Total Bilirubin 0.41 mg/dL (0.00-1.30); Triglycerides 75 mg/dL; Very Low Density Lipoprotein 15 mg/dL (5-40); cholesterol:hdl ratio screen 2.41
[2024-09-25 13:48] LABS: Absolute Lymphocyte Count 1.26 X10^3/uL (0.83-4.51); Absolute Neutrophil Count 1.7 X10^3/uL (2.0-7.7); Basophil# 0.02 X10^3/uL; Basophil% 0.6 % (0-1); Eosinophil# 0.06 X10^3/uL; Eosinophils% 1.7 % (0-5); Hematocrit 36.3 % (37-47); Lymphocyte # 1.26 X10^3/ul (0.83-4.51); Lymphocyte % 35.5 % (19-41); Mean Corp Hgb Conc 33.1 g/dL (32-36); Mean Corpuscular Hgb 31.7 pg (27.0-32.0); Mean Corpuscular Volume 95.8 fL (81-99); Mean Platelet Vol. 10.9 fl (6.2-12.0); Monocyte# 0.53 X10^3/uL; Monocyte% 14.9 % (0-10); NRBC Flagged by Analyzer 0 % (0-5); Neutrophil # 1.68 X10^3/uL (2.7-7.7); Neutrophil % 47.3 % (47-70); Platelet Count 283 K/mm3 (150-450); RBC Distribution Width SD 46.1 fl (35.1-43.9); Red Blood Count 3.79 M/mm3 (4.2-5.4); White Blood Count 3.6 K/mm3 (4.4-11.0)
== END | disposition home or self-care (01) ==
PROVIDERS: PCP Internal Medicine; Referring Provider Internal Medicine; Visit Provider Internal Medicine
DX: I10 Essential (primary) hypertension (principal)
CPT/HCPCS: 36415; 80053; 80061; 85025